=== PATIENT | female | born 1980 | race Caucasian/White ===

== ENCOUNTER → 2016-08-01 | Outpatient (CLI) | payer OTHER ==
--- NOTE | 2016-08-01 11:45 | US ---
August 01, [address] Adriel Ridley, Thank you for requesting consultation and a detailed obstetrical ultrasound for Mrs. Arriaza secondary to advanced maternal age. As you know, Lina is a 36 year old G 2, P 1001 . Her due date is by LMP of 03/15/16 and 10 week ultrasound. Her current gestational age based on this dating is 19 weeks 6 days. Her genetic screening revealed a reassuring NIPT. Her first was delivered v aginally at term. She is pending her MSAFP results. ULTRASOUND Number of fetuses: 1 Placental location: Posterior; no evidence of previa Placental cord insertion: Intraplacental presentation: Variable Cervix: 5.6 cm viewed transabdominally Maximum Vertical Pocket: 5.2 cm The adnexa were evaluated. No pathology was seen. Right ovary is not seen on today's ultrasound. Left ovary is seen with a probable unresolved corpus luteum. The ovary measures 4.5 x 1.9 x 1.8 cm. MEASUREMENTS: Biparietal diameter: 48 mm 20 weeks, 4 days Head circumference: 178 mm 20 weeks, 2 days Abdominal circumference: 156 mm 20 weeks, 6 days Femur length: 30 mm 1 weeks, 93 days Humerus length: 30 mm 19 weeks, 6 days Transcerebellar diameter: 21 mm 19 weeks, 6 days Average ultrasound age: 20 weeks, 2 days Estimated weight: 334 gm weight percentile: 61% ANATOMY Supratentorial brain: Normal including views of the falx, cavum septum pellucidum and choroids Lateral Ventricle: Normal, measuring 5.5 mm Posterior fossa: Normal including the cerebellum and cisterna magna Spine: Normal Nuchal fold: 4.2 mm normal Face: Normal views of the lip and nose area Profile: Normal Palate: Normal appearance of the alveolar ridge Cardiac Exam: Four chamber view of the heart: Normal including intraventricular septum Left Ventricular Outflow Tract: Normal Right Ventricular Outflow Tract: Normal 3 Vessel View: Normal Tracheal View: Normal Aortic Arch: Suboptimal views Ductal Arch: Normal SVC/IVC: Normal Heart Rate: 149 bpm Diaphragm: No overt abnormalities have been detected Stomach: Normal Umbilical cord insertion: Normal Right kidney: Normal Left kidney: Normal Bladder: Normal Number of cord vessels: Three Upper extremities: Normal including the number, and architecture Lower extremities: Normal including the number and architecture Gender: Female IMPRESSION: 1. Intrauterine at 19 w 6 d, DAKOTA of 12/20/16. This is consistent with her previously esta blished dates. 2. Today's sonogram reveals a normal appearing fetus. 3. Cervical length measures 5.6 cm, and is without evidence of insufficiency. 4. Advanced maternal age; reassuring NIPT. RECOMMENDATIONS: I was pleased to review today's ultrasound with your patient. I have reassured her that the gr owth and amiotic fluid volume are appropriate for this gestational age. The detailed anatomic survey did not reveal any overt abnormalities. Lina is aware that ultrasound is a screening tool a nd cannot provide definitive genetic diagnosis. Should she desire definitive genetic diagnosis, she would need to have a genetic amniocentesis performed. After our discussion regarding the procedure, benefits, risks, alternatives, and limitations to the information received Lina DECLINES amniocentes is. Future ultrasound and consultation is left to your clinical discretion. Thank you for allowing me the opportunity to consult and evaluate your patient. Should you have any questions or concerns please do not hesitate to contact me. This visit was approximately 15 minutes in length with 10 minutes spent in direct face to face consultation reviewing aneuploidy screening ve rsus definitive genetic diagnosis. Sincerely, Miguelina Garcia MD Cardiac Exercise Physiologist Maternal Medicine Department of Obstetrics & Gynecology [facility]
--- NOTE | 2016-08-01 16:51 | US ---
OB sonogram History: DAKOTA 12/21/2016, 19 weeks 5 days, check growth and anatomy, advanced maternal age Comparison: None Findings: There is a single viable uterine gestation in variable lie. The placenta is posterior witho ut evidence of previa. The umbilical cord inserts normally into the placenta. The cervix is closed me asuring 5.6 cm transabdominally. The maternal left ovary is normal. The maternal right ovary is not v isualized. The visualized intracranial contents face and spine look normal. The heart is 4 chambered and has a rate of 1 49 bpm. The right and left ventricular outflow tracks look nor mal. Fluid is identified in the stomach and urinary bladder. The renal region ravindra l. The umbilical cord has 3 vessels and a normal insertion site. There are 4 extremities. BPD = 48 mm = 20 weeks 4 days Head circumference = 178 mm = 20 weeks 2 days Abdominal circumference = 156 mm = 20 weeks 6 days Femur length = 30 mm = 19 weeks 3 days Humeral length = 30 mm = 19 weeks 6 days Cerebellar width = 21 mm = 19 weeks 6 days Cisterna magna = 4.5 mm Estimated weight = 334 g = 62 percentile Average gestational age by ultrasound = 20 weeks 2 days Ultrasound DAK[place] 12/17/2016 Impression: Size consistent with dates. Normal anatomy. This report should be read in conjunction with a consultation by Dr. Miguelina Garcia.
== END ==
LOC: FIMAGING 10:07
PROVIDERS: ATTEND Obstetrics & Gynecology
DX: O09.522 Supervision of elderly multigravida, second trimester (principal); Z3A.19 19 weeks gestation of pregnancy

== ENCOUNTER 2016-12-22 02:15 | Inpatient (IN) | payer OTHER ==
[2016-12-22] MEDS ORDERED: LR 1,000 ML IV PRN (03:03)
[2016-12-22] MEDS ORDERED: TERBUTALINE SULFATE 1 MG/ML VIAL IV PRN (03:03)
[2016-12-22] MEDS ORDERED: HYDROCORTISONE 0.5% CREAM TP PRN (03:03)
[2016-12-22] MEDS ORDERED: SIMETHICONE 80 MG TAB CHEW PO PRN (03:03)
[2016-12-22] MEDS ORDERED: EPSOM SALT 454 GM TP PRN (03:03)
[2016-12-22] MEDS ORDERED: OLIVE OIL 118 ML BTL MISC PRN (03:03)
[2016-12-22] MEDS ORDERED: OXYTOCIN/RINGERS LACTATE 1,000 ML IV PRN (03:03)
--- NOTE | 2016-12-22 03:09 | PDGENHP ---
History and Physical - Chief Complaint 36 y.o. s/p at home - History of Present Illness 36 y.o. s/p at home. History Information - Allergies/Home Medication List Allergies/Adverse Reactions: No Known Allergies Allergy (Unverified 04/04/12 14:37) Home Medications: Vit27&Calcium/Iron/FA [] 10/25/13 [Last Taken Unknown] I have personally reviewed and updated: family history, medical history, social history, surgical history - Past Medical History Additional medical history: appendicitis - Surgical History Reports: no pertinent surgical hx - Family History Positive for: cancer, vascular disease Additional family history: depression, hypertension, melanoma, thyroid disease - Social History Smoking Status: Never smoked Alcohol Use: None Drug Use: None Review of Systems ROS: 10pt was reviewed & negative except for what was stated in HPI & below Constitutional: Reports: no symptoms EENMT: Reports: no symptoms Cardiac: Reports: no symptoms Respiratory: Reports: no symptoms Gastrointestinal: Reports: no symptoms Genitourinary: Reports: no symptoms Muscolosketal: Reports: no symptoms Skin: Reports: no symptoms Neurological: Reports: no symptoms Hematologic/Lymphatic: Reports: no symptoms Immunologic/Allergy: Reports: no symptoms Physical Exam Constitutional: uncomfortable Eyes: PERRL Ears, Nose, Mouth, Throat: hearing normal Cardiovascular: regular rate and rhythym, no murmur, rub, or gallop Respiratory: no respiratory distress, clear to auscultation Gastrointestinal: soft, non-tender abdomen Skin: warm, normal color Musculoskeletal: full muscle strength, no muscle tenderness Neurologic: AAOx3, sensation intact bilaterally Psychiatric: interacting appropriately Assessment & Plan Assessment: 36 y.o. s/p precipitous delivery at home. Admit to L&D. Placenta delivered. 1'MLL repaired. VSS- afebrile Plan: Admit to L&D Routine orders.
--- NOTE | 2016-12-22 03:11 | OBDEL ---
Info Type: Vaginal GBS+: No Indications for Delivery: Spontaneous Labor Vaginal Delivery - Labor and Delivery Onset of Contractions Date: 12/22/16 Onset of Contractions Time: 12:00 Onset of Contractions Type: Spontaneous Rupture of Membranes Date: 12/22/16 Rupture of Membranes Time: 01:37 Rupture of Membranes Type: Spontaneous Amniotic Fluid Color: Clear Placenta Delivery Date: 12/22/16 Placenta Delivery Time: 02:44 Total Hours of Labor: -9 Episiotomy: Midline Laceration: 1st Degree Repair: 3-0, Vicryl Vaginal Sponge Count Correct: Yes (10) Vaginal Needle Count Correct: Yes EBL: 250 Delivery Events: Other (Specify) (precipitous delivery at home.) - Medications Labor Augmentation/Induction Methods Used: None Data [place] Delivery Date: 12/22/16 Delivery Time: 01:40 [place]AK[place]: 12/20/16 Gestational Age: 40 week(s) and 2 day(s) Sex of Infant: Female Score (1 Min): 9 Score (5 Min): 9 ICD10 Worksheet Patient Problems: Problems Problem Status Onset SROM (spontaneous rupture of membranes) Acute Spontaneous vaginal delivery Acute
[2016-12-22] MEDS: HYDROCODONE/APAP 5/325 TAB PO PRN ×4 (03:16→20:08)
[2016-12-22] MEDS: IBUPROFEN 600 MG TAB PO PRN ×4 (03:17→21:08)
[2016-12-22] MEDS ORDERED: ONDANSETRON DISINTEGRATING 4 MG TAB PO PRN (04:05)
[2016-12-22 04:12] LABS: % IMMATURE GRANULYOCYTES 0.9 % (0.0-1.1); ADD DIFF? NO; ADD MORPH? NO; ADD SCAN? NO; ATYPICAL LYMPHOCYTE FLAG 0 (0-99); FRAGMENT RBC FLAG 0 (0-99); HEMATOCRIT 39.4 % (38.0-47.0); HEMOGLOBIN 13.5 g/dL (12.6-16.3); LEFT SHIFT FLG 0 (0-99); LIPEMIA HEMOLYSIS FLAG 90 (0-99); MEAN CELL HEMOGLOBIN 29.6 pg (27.9-34.1); MEAN CELL HEMOGLOBIN CONCENTR. 34.3 g/dL (32.4-36.7); MEAN CELL VOLUME 86.4 fL (81.5-99.8); MEAN PLATELET VOLUME 10.2 fL (8.7-11.7); PLATELET CLUMPS FLAG 0 (0-99); PLATELET COUNT 259 10^3/uL (150-400); RED BLOOD CELL COUNT 4.56 10^6/uL (4.18-5.33)
[2016-12-22] MEDS: DOCUSATE SODIUM 100 MG CAP PO PRN ×2 (08:52→20:08)
[2016-12-23] MEDS: HYDROCODONE/APAP 5/325 TAB PO PRN (00:25)
[2016-12-23] MEDS ORDERED: SUCROSE 1 EA UDL ONE (01:55)
[2016-12-23] MEDS: IBUPROFEN 600 MG TAB PO PRN ×3 (03:49→17:35)
--- NOTE | 2016-12-23 08:32 | OBPP ---
Progress Note Assessment/Plan: Assessment: 36 y.o. POD #2. Recovering well with good pain control. Plan: Routine care. Anticipate discharge tomorrow. 12/23/16 08:29 Subjective: Reports feeling well with good pain control and minimal vaginal bleeding. well. Eating and drinking well without nausea or vomiting. Ambulating without vertigo. Appropriate mood with good support system. Objective: 12/22/16 04:05 Patient ABO/Rh O NEGATIVE 12/22/16 04:05 Temp Pulse Resp BP Pulse Ox 36.2 C 62 16 103/70 96 12/22/16 19:45 12/22/16 19:45 12/22/16 19:45 12/22/16 19:45 12/22/16 19:45 Uterine Position/Fundal Height: Umbilicus -1 Uterine Tone: Firm Physical Exam - Physical Exam General Appearance: WD/WN, alert, no apparent distress EENT: normal ENT inspection Neck: non-tender, supple, normal inspection Respiratory: lungs clear, normal breath sounds Cardiac/Chest: regular rate, rhythm Abdomen: non-tender, soft Extremities: non-tender, normal inspection Back: Normal inspection Skin: normal color, warm/dry Neuro/Psych: alert, normal mood/affect, oriented x 3
[2016-12-23] MEDS: DOCUSATE SODIUM 100 MG CAP PO PRN (10:48)
[2016-12-23 20:51] VITALS: O2SAT 96
[2016-12-24] MEDS: IBUPROFEN 600 MG TAB PO PRN ×2 (00:05→09:12)
[2016-12-24] MEDS: DOCUSATE SODIUM 100 MG CAP PO PRN ×2 (00:05→09:12)
[2016-12-24 08:51] VITALS: BP 123/88; PULSE 66; RESP 17; TEMP 98.2
[2016-12-24] MEDS ORDERED: MEASLES,MUMPS&RUBELLA VACC/PF 0.5 ML VIAL SC ONE (11:11)
--- NOTE | 2016-12-24 11:13 | OBGCSDC ---
General Delivery Information - General Info : 2 Para: 2 Admission Date: 12/22/16 Labs: Patient ABO/Rh O NEGATIVE 12/22/16 04:05 Hct 39.4 % (38.0-47.0) 12/22/16 04:05 Vaginal - Diagnosis Labor: Spontaneous Rupture of Membranes Type: Spontaneous Amniotic Fluid Color: Clear Episiotomy: Midline Laceration: 1st Degree Repair: 3-0, Vicryl Delivery Events: Other (Specify) (precipitous delivery at home.) - Operations/Procedures L&D Analgesia/Anesthesia Type: Local - Hospital Course Antepartum: Low risk Intrapartum: Precipitous delivery at home. Placenta delivered at hospital, small laceration repaired : Routine care. Home PPD#2. MMR vaccine Rh neg, baby also Rh neg - Delivery L&D Analgesia/Anesthesia Type: Local Data [place] Delivery Date: 12/22/16 Delivery Time: 01:40 [place]AK[place]: 12/21/16 Gestational Age: 40 week(s) and 3 day(s) Sex of : Female Weight (gm): 3452 g Score (1 Min): 9 Score (5 Min): 9 Discharge Information - Discharge Information Discharge Medications: Iron, Ibuprofen Condition: Good Instruction/Follow Up: Six Weeks Discharge Physician/CNM: Asha Suazo
== END 2016-12-24 12:00 | disposition home or self-care (01) | DRG 776 ==
LOC: FLD 02:15 → FOB 04:58
PROVIDERS: ADMIT Midwife; ATTEND Midwife
PROC: 0HQ9XZZ Repair Perineum Skin, External Approach (ICD-10-PCS; principal; 2016-12-22)
DX: Z39.0 Encounter for care and examination of mother immediately after delivery (principal); O70.0 First degree perineal laceration during delivery; Z3A.40 40 weeks gestation of pregnancy